=== PATIENT | male | born 1975 | race Two or more races ===

== ENCOUNTER 2019-09-07 10:17 | Day surgery (SDC) | payer OTHER | END 2019-09-07 14:40 | disposition home or self-care (01) | LOC: AMB-ENDOS 10:17 | DX: D12.0 Benign neoplasm of cecum (principal); D12.2 Benign neoplasm of ascending colon; D12.5 Benign neoplasm of sigmoid colon; K57.30 Diverticulosis of large intestine without perforation or abscess without bleeding ==